=== PATIENT | female | born 1965 | race African-American/Black ===

== ENCOUNTER 2017-01-21 11:41 | Emergency (ER) | payer OTHER ==
[~2017-01-21] VITALS: Ht 152.4 cm; Wt 107.4 kg
[~2017-01-21 11:41] MED LIST: 1-ME1LIQ PO; ATEN-102 PO; AUGM875T PO; CLON.1 PO; HYDR-2768 PO; METF500 PO; MONT10TA2 PO; MOXI400T4 PO; PRED20 PO; ROBA750T3 PO; ZOCO40TA PO; ZOFR4TAB3 SL; hydrocodone
[2017-01-21 11:44] VITALS: BP 135/86; PULSE 78; RESP 16; TEMP 98.1; O2SAT 98
[2017-01-21] MEDS ORDERED: TOPI1TAB36 PO (11:57)
[2017-01-21] MEDS ORDERED: GABA300C5 PO (11:57)
[2017-01-21] MEDS ORDERED: METH750T PO (11:57)
[2017-01-21] MEDS ORDERED: NAPR500T PO (11:57)
[2017-01-21] MEDS ORDERED: ATEN50TA PO (12:03)
[2017-01-21] MEDS ORDERED: METF500T PO (12:03)
[2017-01-21] MEDS ORDERED: AMLO10TA2 PO (12:03)
[2017-01-21 12:23] LABS: BLOOD, URINE NEG (NEG); GLUCOSE,URINE NEG (NEG); KETONE, URINE NEG (NEG); NITRITE,URINE NEG (NEG)
[2017-01-21 12:26] LABS: COMMENT (UR) CULT NOT INDICATED; CULTURE IF INDICATED CULT NOT INDICATED; METHOD OF COLLECTION CLEAN CATCH; SQUAMOUS EPITHELIAL CELL URINE 0-5 /hpf (0-5); URINE COLOR YELLOW (YELLW/STRAW); WBC, URINE 0-2 /hpf (0-5)
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
[2017-01-21] MEDS ORDERED: TRAM50TA PO (13:00)
[2017-01-21] MEDS ORDERED: TIOC1OIN3 VAGINAL (13:00)
[2017-01-21] MEDS ORDERED: ACETAMINOPHEN/HYDROcodone 325 MG/7.5 MG TAB PO ONE (13:00)
[2017-01-21] MEDS ORDERED: VIST50CA PO (13:00)
== END 2017-01-21 13:40 | disposition home or self-care (01) ==
LOC: PHEFT 11:41
DX: M54.5 Low back pain (principal); G89.29 Other chronic pain; N89.8 Other specified noninflammatory disorders of vagina; G47.00 Insomnia, unspecified; I10 Essential (primary) hypertension; E78.00 Pure hypercholesterolemia, unspecified; R73.03 Prediabetes
CPT/HCPCS: 81001; 99284

== ENCOUNTER 2017-04-19 17:40 | Emergency (ER) | payer OTHER ==
[~2017-04-19 17:40] MED LIST changes: -1-ME1LIQ PO; +AMLO10TA2 PO; -ATEN-102 PO; +ATEN50TA PO; -AUGM875T PO; -CLON.1 PO; +GABA300C5 PO; -HYDR-2768 PO; -METF500 PO; +METF500T PO; +METH750T PO; -MONT10TA2 PO; -MOXI400T4 PO; +NAPR500T PO; -PRED20 PO; -ROBA750T3 PO; +TIOC1OIN3 VAGINAL; +TOPI1TAB36 PO; +TRAM50TA PO; +VIST50CA PO; -ZOCO40TA PO; -ZOFR4TAB3 SL; -hydrocodone
[2017-04-19 17:51] VITALS: BP 136/75; PULSE 85; RESP 20; TEMP 98.1; O2SAT 99
[2017-04-19] MEDS ORDERED: DICL75TA PO (18:03)
[2017-04-19] MEDS ORDERED: LIDO1PAD52 TOPICAL (18:03)
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
[2017-04-19] MEDS ORDERED: KETOROLAC TROMETHAMINE 60 MG/2 ML (IM) VIAL IM ONE (18:45)
== END 2017-04-19 18:40 | disposition home or self-care (01) ==
LOC: PHEFT 17:40
DX: G89.29 Other chronic pain (principal); M54.2 Cervicalgia; I10 Essential (primary) hypertension; E78.00 Pure hypercholesterolemia, unspecified; E11.9 Type 2 diabetes mellitus without complications
CPT/HCPCS: 99284; J1885